=== PATIENT | male | born 1995 | race Caucasian/White ===

== ENCOUNTER 2017-12-02 21:34 | Emergency (ER) | payer OTHER, SELFPAY ==
[2017-12-02 21:36] VITALS: BP 151/67; PULSE 81; RESP 16; TEMP 37.3; O2SAT 99; BMI 24.5
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
--- NOTE | 2017-12-02 22:47 | ED.DEP ---
ED Disposition - Plan for ED Patient: Disposition: Home or Assisted Living Chief Complaint: Burn Instructions: ED Burn Thermal D 2nd Dressing, ED Burn Scald Prescriptions: Lidocaine 2% Jelly [Xylocaine 2% Jelly] 5 ml TOPICAL BID PRN PRN #1 tube PRN Reason: Pain Bacitracin Ointment 1 applic TOPICAL BID #2 tube Referrals: NOT,DEFINED [NON-STAFF] -
[2017-12-02] MEDS: BENZOCAINE 20% SPRAY 1 EACH MM (23:32)
[2017-12-02] MEDS: BACITRACIN 15 GM Tube 1 APPLIC TOPICAL (23:32)
--- NOTE | 2017-12-02 23:33 | NURSING ---
AL HURTADO DID THE CLEANSING OF THE PT JILL AREA AND CLEANED WITH NS, PUT BACITRACIN OINTMENT ON THE AREA AND LIDOCAINE TO HELP WITH THE PAIN. AL ALSO PUT A WET TO DRY DRESSING TO THE AREA. SENDING HOME WITH RX. PT FELT MORE COMFORTABLE WITH A MALE DOING HIS CLEANING.
[2017-12-02 23:39] VITALS: BP 137/60; PULSE 79; RESP 16; O2SAT 100
== END 2017-12-02 23:40 | disposition home or self-care (01) ==
PROVIDERS: Emergency Provider Emergency Medicine
DX: T24.212A Burn of second degree of left thigh, initial encounter (principal); T21.16XA Burn of first degree of male genital region, initial encounter; X10.0XXA Contact with hot drinks, initial encounter; Y93.9 Activity, unspecified; Y92.9 Unspecified place or not applicable; Y99.9 Unspecified external cause status
CPT/HCPCS: 99282